=== PATIENT | male | born 1975 | race Caucasian/White ===

== ENCOUNTER 2017-05-04 07:45 | Outpatient (CLI) | payer OTHER ==
[~2017-05-04 07:45] MED LIST: ORPH100T PO; PEPCID40 MG PO; ZOFRAN8 MG PO
== END 2017-05-04 09:07 | disposition home or self-care (01) ==
LOC: SONOGRAMA 07:45
DX: R10.11 Right upper quadrant pain (principal); R19.7 Diarrhea, unspecified; Z80.0 Family history of malignant neoplasm of digestive organs; K80.18 Calculus of gallbladder with other cholecystitis without obstruction

== ENCOUNTER 2017-05-09 07:21 | Outpatient (CLI) | payer OTHER | END 2017-05-09 08:00 | disposition home or self-care (01) | LOC: NUCLEAR 07:21 | DX: R10.11 Right upper quadrant pain (principal); R19.7 Diarrhea, unspecified; Z80.0 Family history of malignant neoplasm of digestive organs; K80.18 Calculus of gallbladder with other cholecystitis without obstruction | CPT/HCPCS: 78227; J2805; A9537 ==

== ENCOUNTER 2017-06-05 06:51 | Day surgery (SDC) | payer OTHER ==
[~2017-06-05 06:51] MED LIST changes: +CONCERTA54 MG PO
[2017-06-05] MEDS ORDERED: PERCOCET 5-3251 EACH PO (11:09)
== END 2017-06-05 15:50 | disposition home or self-care (01) ==
LOC: CIR.AMB 06:51
DX: K81.1 Chronic cholecystitis (principal)

== ENCOUNTER 2017-08-07 08:20 | Outpatient (CLI) | payer OTHER ==
[~2017-08-07 08:20] MED LIST changes: +PERCOCET 5-3251 EACH PO
== END 2017-08-07 15:37 | disposition home or self-care (01) ==
LOC: TOM 08:20
DX: R10.11 Right upper quadrant pain (principal); R19.7 Diarrhea, unspecified; K82.8 Other specified diseases of gallbladder; Z80.0 Family history of malignant neoplasm of digestive organs